=== PATIENT | female | born 1985 ===

== ENCOUNTER 2017-05-02 21:35 | Emergency (ER) | payer SELFPAY ==
[2017-05-02 21:43] VITALS: BP 147/93; PULSE 98; RESP 16; TEMP 98; O2SAT 100
--- NOTE | 2017-05-02 23:13 | ED PDOC ---
HPI: Headache Time Seen by Provider: 05/02/17 21:53 Chief Complaint (Nursing): Headache Chief Complaint (Provider): Headache left sided for 2 weeks History Per: Patient History/Exam Limitations: no limitations Onset/Duration Of Symptoms: Days (x2 weeks) Current Symptoms Are (Timing): Still Present Additional Complaint(s): 31 y/o female presents to the emergency department with a complaint of a constant left-sided headache x2 weeks. States she took Aleve at 18:00 without the relief of pain. Denies any further medical complaints. Past Medical History Reviewed: Historical Data, Nursing Documentation, Vital Signs Vital Signs: Last Vital Signs Temp 98.0 F 05/02/17 21:40 Pulse 98 H 05/02/17 21:40 Resp 16 05/02/17 21:40 BP 147/93 H 05/02/17 21:40 Pulse Ox 100 05/02/17 21:40 - Medical History PMH: No Chronic Diseases - Family History Family History: States: Unknown Family Hx - Social History Current smoker - smoking cessation education provided: No Alcohol: None Drugs: Denies - Home Medications Home Medications: Ambulatory Orders Medication Instructions Recorded Aspirin/Acetaminophen/Caffeine 2 each PO Q8H PRN #20 tablet 05/02/17 [Excedrin Migraine Caplet] - Allergies Allergies/Adverse Reactions: Allergies Allergy/AdvReac Type Severity Reaction Status Date / Time No Known Allergies Allergy Verified 05/02/17 21:40 Review of Systems ROS Statement: Except As Marked, All Systems Reviewed And Found Negative Neurological: Positive for: Headache Physical Exam - Reviewed Nursing Documentation Reviewed: Yes Vital Signs Reviewed: Yes - Physical Exam Appears: Positive for: Non-toxic, No Acute Distress Head Exam: Positive for: ATRAUMATIC, NORMAL INSPECTION, NORMOCEPHALIC Skin: Positive for: Normal Color, Warm, Dry ENT: Positive for: Normal ENT Inspection. Negative for: Pharyngeal Erythema Neck: Positive for: Normal, Supple Cardiovascular/Chest: Positive for: Regular Rate, Rhythm. Negative for: Murmur Respiratory: Positive for: Normal Breath Sounds. Negative for: Accessory Muscle Use, Respiratory Distress Gastrointestinal/Abdominal: Positive for: Normal Exam, Soft. Negative for: Tenderness Neurologic/Psych: Positive for: Alert, Oriented - ECG O2 Sat by Pulse Oximetry: 100 (RA) Pulse Ox Interpretation: Normal Medical Decision Making Medical Decision Making: Time: 21:53 Initial Impression: Headache Initial Plan: --ED Urine (POC) --Head CT --Revaluation Time: 23:00 --Head CT FINDINGS: HEMORRHAGE: No intracranial hemorrhage. BRAIN: No mass effect or edema. No atrophy or chronic microvascular ischemic changes. VENTRICLES: Unremarkable. No hydrocephalus. CALVARIUM: Unremarkable. PARANASAL SINUSES: Unremarkable as visualized. No significant inflammatory changes. MASTOID AIR CELLS: Unremarkable as visualized. No inflammatory changes. OTHER FINDINGS: None. IMPRESSION: No intracranial mass, hemorrhage or evidence of acute infarct. Time: 23:13 Upon provider reevaluation patient is feeling better, is medically stable, and requires no further treatment in the ED at this time. Patient will be discharged home. Counseling was provided and all questions were answered regarding diagnosis and need for follow up with referred clinics. There is agreement to discharge plan. Return if symptoms persist or worsen. Clinical Impression: Headache Scribe Attestation: Documented by Bebe Rogers, acting as a scribe for Niurka Major PA-C. Provider Scribe Attestation: All medical record entries made by the Scribe were at my direction and personally dictated by me. I have reviewed the chart and agree that the record accurately reflects my personal performance of the history, physical exam, medical decision making, and the department course for this patient. I have also personally directed, reviewed, and agree with the discharge instructions and disposition. Disposition - Clinical Impression Clinical Impression: Headache - Patient ED Disposition Is Patient to be Admitted: No Counseled Patient/Family Regarding: Diagnosis, Need For Followup, Rx Given - Disposition Referrals: [facility] [Outside] Replaced By [facility] [Outside] Disposition: Routine/Home Disposition Time: 23:13 Condition: GOOD Prescriptions: Aspirin/Acetaminophen/Caffeine [Excedrin Migraine Caplet] 2 each PO Q8H PRN #20 tablet PRN Reason: Headache Instructions: Acute Headache (ED) Print Language: FRENCH
--- NOTE | 2017-05-03 08:45 | CT ---
PROCEDURE: CT HEAD WITHOUT CONTRAST. HISTORY: headache, tingling in arms COMPARISON: None available. TECHNIQUE: Axial computed tomography images were obtained through the head/brain without intravenous contrast. Radiation dose: Total exam DLP = 800.93 mGy-cm. This CT exam was performed using one or more of the following dose reduction techniques: Automated exposure control, adjustment of the mA and/or kV according to patient size, and/or use of iterative reconstruction technique. FINDINGS: HEMORRHAGE: No intracranial hemorrhage. BRAIN: No mass effect or edema. No atrophy or chronic microvascular ischemic changes. VENTRICLES: Unremarkable. No hydrocephalus. CALVARIUM: Unremarkable. PARANASAL SINUSES: Unremarkable as visualized. No significant inflammatory changes. MASTOID AIR CELLS: Unremarkable as visualized. No inflammatory changes. OTHER FINDINGS: None. IMPRESSION: No intracranial mass, hemorrhage or evidence of acute infarct. Preliminary interpretation of this examination was reported by [facility] at 11 p.m. on 05/02/2017. There is concurrence of this report with the preliminary interpretation.
== END 2017-05-02 23:36 | disposition home or self-care (01) ==
LOC: H.ER 21:35
DX: R51 Headache (principal); Z79.82 Long term (current) use of aspirin

== ENCOUNTER 2018-01-02 20:03 | Emergency (ER) | payer SELFPAY ==
[2018-01-02 21:54] VITALS: BP 121/65; PULSE 96; RESP 18; TEMP 97.6; O2SAT 99
--- NOTE | 2018-01-02 22:53 | ED PDOC ---
HPI: General Adult Time Seen by Provider: 01/02/18 21:59 Chief Complaint (Nursing): Breast Problem History Per: Patient Additional Complaint(s): Pt. states for the past 2 weeks she's had constant b/l breast pain. Reports that pain has no alleviating or exacerbating factors. Denies chest pain, SOB, palpitations, hemoptysis, nipple discharge, swelling, masses. Past Medical History Reviewed: Historical Data, Nursing Documentation, Vital Signs Vital Signs: Last Vital Signs Temp 97.6 F 01/02/18 21:52 Pulse 96 H 01/02/18 21:52 Resp 18 01/02/18 21:52 BP 121/65 01/02/18 21:52 Pulse Ox 99 01/02/18 21:52 - Family History Family History: States: No Known Family Hx - Home Medications Home Medications: Ambulatory Orders Medication Instructions Recorded Aspirin/Acetaminophen/Caffeine 2 each PO Q8H PRN #20 tablet 05/02/17 [Excedrin Migraine Caplet] Naproxen [Naprosyn] 500 mg PO BID PRN #10 tab 01/02/18 - Allergies Allergies/Adverse Reactions: Allergies Allergy/AdvReac Type Severity Reaction Status Date / Time No Known Allergies Allergy Verified 05/02/17 21:40 Review of Systems ROS Statement: Except As Marked, All Systems Reviewed And Found Negative Physical Exam - Physical Exam Appears: Positive for: Well, Non-toxic, No Acute Distress Skin: Positive for: Normal Color, Warm. 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)) Respiratory: Positive for: CNT, Normal Breath Sounds Neurologic/Psych: Positive for: Alert, Oriented - Laboratory Results Urine POC: Negative - ECG O2 Sat by Pulse Oximetry: 99 - Progress ED Course And Treament: LMP: 12/02/2017 Disposition - Clinical Impression Clinical Impression: Pain of breast - Patient ED Disposition Is Patient to be Admitted: No - Disposition [facility] [Outside] Disposition: Routine/Home Disposition Time: 22:55 Condition: STABLE Prescriptions: Naproxen [Naprosyn] 500 mg PO BID PRN #10 tab PRN Reason: Pain Instructions: Breast Self Exam for Women (ED) Forms: [employer] (Slovak) Print Language: [email or web address]
== END 2018-01-02 23:11 | disposition home or self-care (01) ==
LOC: H.ER 20:03
DX: N64.4 Mastodynia (principal)